=== PATIENT | female | born 1955 | race Caucasian/White ===

== ENCOUNTER → 2016-10-17 | Outpatient (CLI) | payer OTHER ==
[~2016-10-17] MED LIST: ASPI1TAB PO; ATOR1TAB21 PO; COLA100C PO; DULO30CA PO; ENBREL PO; FISH OIL PO; FOLBTAB3 PO; FOLI1TAB2 PO; FOLITAB11 PO; IBUP800T PO; LEVO75TA4 PO; LEVOTHYROXINE PO; METH2.5TA PO; METHOTREXATE PO; NEXI40CA PO; OREN1INJ SC; PEG1POW PO; PERC5TAB8 PO; PERCOCET PO; RAMI5CA PO; RAMIPRIL PO; SIMVASTIN PO
--- NOTE | 2016-10-17 15:01 | DEXA ---
AP SPINE L1 - L4 1.283 0.9 1.3 LT FEMUR TOTAL 0.806 -1.6 -1.2 RT FEMUR TOTAL 0.794 -1.7 -1.3 TOTAL BODY TOTAL OTHER DUAL FEMUR FRAX* ASSESSMENT Risk factors: Rheumatoid arthritis, premature menopause. 10 year probability of fracture Major osteoporotic fracture 13.3 % Hip fracture 2.1 % COMMENTS: Normal bone densitometry of the spine. There is low bone density of the hips. The density of the spine has decreased 10.8% since the initial exam on 2001. The spine density has decreased 2.1% since the most recent exam on 09/29/2011. The density of the left hip has decreased 11.9% since the initial exam on 2001 The density of the left hip has decreased 6.7% since the most recent exam on 07/2012. The density of the right hip has decreased 11.3% since the initial exam on 10/05. The density of the right hip has decreased 6.0% since the most recent exam on . FOLLOW-UP: Recommendation for the next bone density exam: 2 years. AASHISH
== END ==
LOC: M WHC 09:25
PROVIDERS: ATTEND Physician Assistant
DX: M06.9 Rheumatoid arthritis, unspecified (principal)

== ENCOUNTER → 2019-04-21 | Outpatient (CLI) | payer MEDICARE, OTHER ==
[~2019-04-21] MED LIST changes: -ASPI1TAB PO; +ASPI81TA26 PO; -COLA100C PO; +COLA100C5 PO; -DULO30CA PO; +DULO30CA9 PO; +FOLI1TAB11 PO; -FOLI1TAB2 PO; +METH2.5T48 PO; -METH2.5TA PO; +RAMI1CAP24 PO; -RAMI5CA PO
[2019-04-21 15:47] LABS: BASO # 0.1 10^3/uL (0.0-0.2); BASO % 0.5 % (0.0-1.0); EOS # 0.1 10^3/uL (0.0-0.5); EOS % 1.5 % (0.0-3.0); HEMATOCRIT 40.7 % (36.0-47.0); HEMOGLOBIN 13.3 g/dl (12.0-15.5); LYMPH # 2.5 10^3/uL (1.5-5.0); LYMPH % 26.8 % (24.0-44.0); MEAN CORPUSCULAR HEMOGLOBIN 30.6 pg (27.0-33.0); MEAN CORPUSCULAR HGB CONC 32.7 g/dl (32.0-36.5); MEAN CORPUSCULAR VOLUME 93.6 fl (80.0-96.0); MONO # 0.7 10^3/uL (0.0-0.8); MONO % 7.2 % (0.0-5.0); NEUTROPHILS % 63.7 % (36.0-66.0); PLATELET COUNT, AUTOMATED 208 10^3/uL (150-450); RED BLOOD COUNT 4.35 10^6/uL (4.00-5.40); WHITE BLOOD COUNT 9.4 10^3/uL (4.0-10.0)
[2019-04-21 16:06] LABS: ERYTHROCYTE SEDIMENTATION RATE 10 mm/hr (0-30)
[2019-04-21 16:15] LABS: ALBUMIN 3.6 GM/DL (3.2-5.2); ALT/SGPT 30 U/L (12-78); BILIRUBIN,TOTAL 0.4 MG/DL (0.2-1.0); BLOOD UREA NITROGEN 16 MG/DL (7-18); C REACTIVE PROTEIN QUANTITATIV < 0.30 MG/DL (0.00-0.30); CALCIUM LEVEL 8.8 MG/DL (8.8-10.2); CARBON DIOXIDE LEVEL 29 MEQ/L (21-32); CHLORIDE LEVEL 107 MEQ/L (98-107); CREATININE FOR GFR 0.86 MG/DL (0.55-1.30); GLOMERULAR FILTRATION RATE > 60.0 (>45); GLUCOSE, FASTING 104 MG/DL (70-100); POTASSIUM SERUM 4.6 MEQ/L (3.5-5.1); SODIUM LEVEL 140 MEQ/L (136-145); TOTAL PROTEIN 7.1 GM/DL (6.4-8.2)
[2019-04-23 12:22] LABS: HEPATITIS B SURFACE ANTIBODY NEGATIVE (POSITIVE)
[2019-04-23 12:33] LABS: HEPATITIS B SURFACE ANTIGEN NEGATIVE (NEGATIVE)
== END ==
LOC: M LAB 14:19
PROVIDERS: ATTEND Internal Medicine Rheumatology
DX: M05.79 Rheumatoid arthritis with rheumatoid factor of multiple sites without organ or systems involvement (principal); Z79.899 Other long term (current) drug therapy

== ENCOUNTER 2019-08-13 12:58 | Emergency (ER) | payer MEDICARE, OTHER ==
[~2019-08-13] VITALS: Ht 170.2 cm; Wt 93.2 kg
[2019-08-13] MEDS ORDERED: DILT180C28 PO (13:35)
[2019-08-13] MEDS ORDERED: LOSA25TA14 PO (13:35)
[2019-08-13] MEDS ORDERED: XELJ5TAB PO (13:35)
[2019-08-13] MEDS ORDERED: ELIQ5TAB PO (13:35)
[2019-08-13 13:36] LABS: BASO # 0.1 10^3/uL (0.0-0.2); BASO % 0.6 % (0.0-1.0); EOS # 0.1 10^3/uL (0.0-0.5); EOS % 1.1 % (0.0-3.0); HEMATOCRIT 39.5 % (36.0-47.0); HEMOGLOBIN 12.3 g/dl (12.0-15.5); LYMPH # 1.8 10^3/uL (1.5-5.0); LYMPH % 21.4 % (24.0-44.0); MEAN CORPUSCULAR HEMOGLOBIN 29.3 pg (27.0-33.0); MEAN CORPUSCULAR HGB CONC 31.1 g/dl (32.0-36.5); MONO # 0.7 10^3/uL (0.0-0.8); MONO % 7.9 % (0.0-5.0); NEUTROPHILS # 5.8 10^3/uL (1.5-8.5); NEUTROPHILS % 68.6 % (36.0-66.0); PLATELET COUNT, AUTOMATED 227 10^3/uL (150-450); WHITE BLOOD COUNT 8.5 10^3/uL (4.0-10.0)
[2019-08-13] MEDS ORDERED: NS 1,000 ML IV SCH (13:42)
[2019-08-13] MEDS ORDERED: ASPIRIN 81 MG CHEW TABLET PO ONE (13:45)
--- NOTE | 2019-08-13 13:50 | REP ---
Clinical: Chest pain . Comparison: 01/08/2016 . Findings: The mediastinum and cardiac silhouette are stable and within normal limits for portable technique. The lung tinajero are clear without acute consolidation, effusion, or pneumothorax. Skeletal structures are intact. Impression: No acute cardiopulmonary process appreciated. Electronically Signed by Jayme Flores MD 08/13/2019 01:40 P
[2019-08-13 13:55] LABS: INR 1.04; PROTHROMBIN TIME 13.3 SECONDS (11.8-14.0)
[2019-08-13] MEDS: NITROGLYCERIN 0.4 MG SUBL TABLET SL PRN ×2 (13:58→14:04)
[2019-08-13 14:02] LABS: ALBUMIN 3.4 GM/DL (3.2-5.2); ALT/SGPT 24 U/L (12-78); BILIRUBIN,DIRECT 0.1 MG/DL (0.0-0.2); BILIRUBIN,TOTAL 0.6 MG/DL (0.2-1.0); BLOOD UREA NITROGEN 18 MG/DL (7-18); CALCIUM LEVEL 9.1 MG/DL (8.8-10.2); CARBON DIOXIDE LEVEL 27 MEQ/L (21-32); CHLORIDE LEVEL 110 MEQ/L (98-107); CK-MB VALUE MASS 1.4 NG/ML (<3.6); CPK CREATINE PHOSPHOKINASE 106 U/L (26-192); CREATININE FOR GFR 0.89 MG/DL (0.55-1.30); GLOMERULAR FILTRATION RATE > 60.0 (>45); GLUCOSE, FASTING 91 MG/DL (70-100); LIPASE 191 U/L (73-393); MB/CK RELATIVE INDEX 1.32 (< OR =4); POTASSIUM SERUM 4.4 MEQ/L (3.5-5.1); SODIUM LEVEL 142 MEQ/L (136-145); TOTAL PROTEIN 6.8 GM/DL (6.4-8.2); TROPONIN I < 0.02 NG/ML (< 0.10)
[2019-08-13 14:04] VITALS: BP 152/88
[2019-08-13 18:15] LABS: CK-MB VALUE MASS 1.5 NG/ML (<3.6); CPK CREATINE PHOSPHOKINASE 85 U/L (26-192); MB/CK RELATIVE INDEX 1.76 (< OR =4); TROPONIN I < 0.02 NG/ML (< 0.10)
[2019-08-13 18:45] VITALS: BP 177/85
--- NOTE | 2019-08-15 15:05 | ECGEPIP ---
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
--- NOTE | 2019-08-15 15:11 | ECGEPIP ---
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
== END 2019-08-13 18:51 | disposition home or self-care (01) ==
LOC: M ED 12:58
DX: R07.89 Other chest pain (principal); R06.02 Shortness of breath; I10 Essential (primary) hypertension; I48.91 Unspecified atrial fibrillation; E07.9 Disorder of thyroid, unspecified; I25.2 Old myocardial infarction; Z79.899 Other long term (current) drug therapy; Z79.890 Hormone replacement therapy; Z79.01 Long term (current) use of anticoagulants

== ENCOUNTER → 2019-11-08 | Outpatient (REF) | payer MEDICARE, OTHER ==
[~2019-11-08] MED LIST changes: +AUGM875T28 PO; +DILT180C28 PO; +ELIQ5TAB PO; +LOSA25TA14 PO; +PROM25TA12 PO; +XELJ5TAB PO
[2019-11-08 13:51] LABS: BASO % 0.4 % (0.0-1.0); EOS # 0.1 10^3/uL (0.0-0.5); EOS % 0.8 % (0.0-3.0); HEMOGLOBIN 13.2 g/dl (12.0-15.5); LYMPH # 1.6 10^3/uL (1.5-5.0); LYMPH % 19.8 % (24.0-44.0); MEAN CORPUSCULAR HEMOGLOBIN 29.2 pg (27.0-33.0); MEAN CORPUSCULAR HGB CONC 31.4 g/dl (32.0-36.5); MEAN CORPUSCULAR VOLUME 92.9 fl (80.0-96.0); MONO # 0.6 10^3/uL (0.0-0.8); MONO % 7.7 % (0.0-5.0); NEUTROPHILS # 5.6 10^3/uL (1.5-8.5); PLATELET COUNT, AUTOMATED 225 10^3/uL (150-450); RED BLOOD COUNT 4.52 10^6/uL (4.00-5.40); WHITE BLOOD COUNT 7.8 10^3/uL (4.0-10.0)
[2019-11-08 13:58] LABS: ALBUMIN 3.7 GM/DL (3.2-5.2); ALT/SGPT 32 U/L (12-78); BILIRUBIN,TOTAL 0.9 MG/DL (0.2-1.0); BLOOD UREA NITROGEN 16 MG/DL (7-18); C REACTIVE PROTEIN QUANTITATIV < 0.30 MG/DL (0.00-0.30); CALCIUM LEVEL 8.8 MG/DL (8.8-10.2); CARBON DIOXIDE LEVEL 29 MEQ/L (21-32); CHLORIDE LEVEL 109 MEQ/L (98-107); GLOMERULAR FILTRATION RATE > 60.0 (>45); GLUCOSE, FASTING 116 MG/DL (70-100); SODIUM LEVEL 142 MEQ/L (136-145); TOTAL PROTEIN 7.1 GM/DL (6.4-8.2)
[2019-11-08 14:17] LABS: ERYTHROCYTE SEDIMENTATION RATE 9 mm/hr (0-30)
== END ==
LOC: M SFHCRHEU 08:21
PROVIDERS: ATTEND Internal Medicine
DX: M05.79 Rheumatoid arthritis with rheumatoid factor of multiple sites without organ or systems involvement (principal)
CPT/HCPCS: 36415; 80053; 85025; 85652; 86140; G0463

== ENCOUNTER 2019-11-09 07:14 | Emergency (ER) | payer MEDICARE, OTHER ==
[~2019-11-09] VITALS: Ht 170.2 cm; Wt 93.3 kg
[~2019-11-09 07:14] MED LIST changes: -AUGM875T28 PO; -PROM25TA12 PO
[2019-11-09] MEDS ORDERED: NS 1,000 ML IV ONE (07:45)
[2019-11-09] MEDS ORDERED: ONDANSETRON 4MG/2ML VIAL (J2405) IV ONE (07:45)
[2019-11-09] MEDS ORDERED: GI COCKTAIL 50ML BTL(HYOSCYAMINE/MAALOX/LIDOCAINE VISCOUS)(1:3:1) PO ONE (07:45)
[2019-11-09 08:47] LABS: BASO % 0.5 % (0.0-1.0); EOS # 0.1 10^3/uL (0.0-0.5); EOS % 0.9 % (0.0-3.0); HEMOGLOBIN 12.7 g/dl (12.0-15.5); LYMPH # 1.6 10^3/uL (1.5-5.0); LYMPH % 19.3 % (24.0-44.0); MEAN CORPUSCULAR HEMOGLOBIN 29.1 pg (27.0-33.0); MEAN CORPUSCULAR HGB CONC 31.8 g/dl (32.0-36.5); MEAN CORPUSCULAR VOLUME 91.5 fl (80.0-96.0); MONO # 0.5 10^3/uL (0.0-0.8); MONO % 5.6 % (0.0-5.0); NEUTROPHILS % 73.3 % (36.0-66.0); PLATELET COUNT, AUTOMATED 204 10^3/uL (150-450); RED BLOOD COUNT 4.37 10^6/uL (4.00-5.40); WHITE BLOOD COUNT 8.2 10^3/uL (4.0-10.0)
[2019-11-09 09:05] LABS: INFLUENZA A AMPLIFICATION NEGATIVE (NEGATIVE); INFLUENZA B AMPLIFICATION NEGATIVE (NEGATIVE)
[2019-11-09 09:11] LABS: ALBUMIN 3.4 GM/DL (3.2-5.2); ALT/SGPT 30 U/L (12-78); BILIRUBIN,DIRECT 0.2 MG/DL (0.0-0.2); BILIRUBIN,TOTAL 0.8 MG/DL (0.2-1.0); CK-MB VALUE MASS < 1.0 NG/ML (<3.6); CPK CREATINE PHOSPHOKINASE 88 U/L (26-192); LIPASE 118 U/L (73-393); MB/CK RELATIVE INDEX 1.14 (< OR =4); TOTAL PROTEIN 6.6 GM/DL (6.4-8.2); TROPONIN I < 0.02 NG/ML (< 0.10)
[2019-11-09] MEDS ORDERED: ISOVUE-370 76% 100ML VIAL (Q9967) As Ordered ONE (09:25)
[2019-11-09 09:33] LABS: INR 1.21
[2019-11-09 09:34] LABS: PARTIAL THROMBOPLASTIN TIME 31.7 SECONDS (25.0-38.4)
[2019-11-09] MEDS ORDERED: PROMETHAZINE INJ 25 MG/ML VIAL (J2550) IV ONE (10:00)
--- NOTE | 2019-11-09 10:02 | REP ---
Clinical: Abdominal pain with nausea and vomiting. Technique: Axial contrast enhanced images from the lung bases to the pubic symphysis using 100 ml Isovue 370 intravenous contrast material with coronal and sagittal re-formations. Findings: Lung bases are relatively clear. Visualized portions of the heart and pericardium are normal. Diffuse fatty infiltration to the liver noted. Evidence of prior cholecystectomy. Spleen, pancreas, bilateral adrenal glands and kidneys are essentially normal / age appropriate. The enteric system is without obstruction and the small bowel is relatively normal in appearance. A very subtle ascending colitis cannot definitively be excluded. Few scattered sigmoid diverticula noted without acute diverticulitis. Pelvis demonstrates normal bladder and evidence for prior hysterectomy. No ascites. No free air. No adenopathy. Abdominal aorta without aneurysm or dissection. Musculoskeletal structures demonstrate degenerative changes. Impression: 1. Hepatic steatosis. 2. A very mild ascending colitis cannot be excluded. 3. Few scattered sigmoid diverticula without acute diverticulitis. 4. No ascites, focal inflammatory stranding, adenopathy, or free air noted. Electronically Signed by Jayme Flores MD 11/09/2019 09:53 A
[2019-11-09] MEDS ORDERED: AUGM875T28 PO (11:07)
[2019-11-09] MEDS ORDERED: PROM25TA12 PO (11:07)
[2019-11-09 11:16] VITALS: BP 150/84
--- NOTE | 2019-11-10 05:28 | ECGEPIP ---
[facility] - ED Test Date: 2019-11-09 Pat Name: PAULINE LYONS Department: Room: - Gender: Female Regional Cra: : 1955 Requested By: PAULA TAYLOR Order Number: [id number] Reading MD: Thomas Juarez Measurements Intervals [place] Rate: 66 P: 42 LA: 175 QRS: 6 QRSD: 89 T: 62 QT: 389 QTc: 408 Interpretive Statements SINUS RHYTHM INCOMPLETE RIGHT BUNDLE BRANCH BLOCK SIMILAR TO 08/13/19 Electronically Signed on 11-10-2019 5:27:50 EDT by Thomas Juarez
== END 2019-11-09 11:22 | disposition home or self-care (01) ==
LOC: M ED 07:14
DX: K52.9 Noninfective gastroenteritis and colitis, unspecified (principal); I48.91 Unspecified atrial fibrillation; M06.9 Rheumatoid arthritis, unspecified; Z95.5 Presence of coronary angioplasty implant and graft; Z79.899 Other long term (current) drug therapy; Z79.01 Long term (current) use of anticoagulants
CPT/HCPCS: 74177; 80047; 80076; 81001; 82550; 82553; 83690; 84484; 85025; 85610; 85730; 87502; 93005; 96361; 96374; 96375; 99284; J2405; Q9967

== ENCOUNTER → 2019-11-10 | Outpatient (REF) | payer MEDICARE, OTHER ==
[~2019-11-10] MED LIST changes: +AUGM875T28 PO; +PROM25TA12 PO
== END ==
LOC: M LAB REF 10:56
PROVIDERS: ATTEND Nurse Practitioner Family
DX: R11.2 Nausea with vomiting, unspecified (principal); R19.7 Diarrhea, unspecified

== ENCOUNTER → 2020-10-05 | Outpatient (CLI) | payer MEDICARE, OTHER ==
--- NOTE | 2020-10-05 11:56 | DEXAMM ---
INDICATION: M81.0 AGE RELATED OSTEOPOROSIS. COMPARISON: The most recent comparison study is October 17, 2016. The most remote is dated 05 October 2001.. TECHNIQUE: Bone density was measured using dual-energy x-ray absorptionmetry (DEXA). FINDINGS: AP SPINE L1-L4 BMD 1.342 g/cm2 Young Adult T-Score 1.4 Age Matched Z-Score 3.0. LT FEMUR, TOTAL BMD 0.817 g/cm2 Young Adult T-Score -1.5 Age Matched Z-Score -0.2. LT NECK BMD 0.797 g/cm2 Young Adult T-Score -1.7 Age Matched Z-Score -0.2. RT FEMUR, TOTAL BMD 0.799 g/cm2 Young Adult T-Score -1.7 Age Matched Z-Score -0.4. RT NECK BMD 0.757 g/cm2 Young Adult T-Score -2.0 Age Matched Z-Score -0.5. IMPRESSION: There is normal bone density of the spine. There is low bone density of the left hip. There is low bone density of the right hip. The density of the spine has decreased 6.7% since the initial exam on October 05, 2001. The density of the spine increased 4.6% since most recent exam on October 17, 2016. The density of the left hip has decreased 10.7% since initial exam on October 05, 2001. The density of the left hip has increased 1.4% since most recent exam on October 17, 2016. The density of the right hip has decreased 10.7% since the initial exam on October 05, 2001. The density of the right hip has increased 0.6% since the most recent exam on October 17, 2016. FOLLOW-UP: Recommendation for the next bone density exam: 2 years. <Electronically signed by Mingo Borrero > 10/05/20 [id number]
== END ==
LOC: M WHC 11:15
PROVIDERS: ATTEND Internal Medicine Endocrinology, Diabetes & Metabolism
DX: M81.0 Age-related osteoporosis without current pathological fracture (principal); M85.851 Other specified disorders of bone density and structure, right thigh; M85.852 Other specified disorders of bone density and structure, left thigh

== ENCOUNTER → 2023-03-13 | Outpatient (REF) | payer MEDICARE, OTHER ==
[~2023-03-13] MED LIST changes: +LOSA25TA13 PO; -LOSA25TA14 PO; -PEG1POW PO; +POLY17PO18 PO
== END ==
LOC: M SFHCRHEU 10:37
PROVIDERS: ATTEND Internal Medicine Rheumatology
DX: M05.79 Rheumatoid arthritis with rheumatoid factor of multiple sites without organ or systems involvement (principal); M89.49 Other hypertrophic osteoarthropathy, multiple sites; H04.123 Dry eye syndrome of bilateral lacrimal glands; Z79.899 Other long term (current) drug therapy

== ENCOUNTER → 2023-05-22 | Outpatient (REF) | payer MEDICARE, OTHER | LOC: M SFHCRHEU 11:56 | PROVIDERS: ATTEND Internal Medicine Rheumatology | DX: M05.79 Rheumatoid arthritis with rheumatoid factor of multiple sites without organ or systems involvement (principal); Z79.899 Other long term (current) drug therapy; M89.49 Other hypertrophic osteoarthropathy, multiple sites; H04.123 Dry eye syndrome of bilateral lacrimal glands ==

== ENCOUNTER → 2023-08-05 | Outpatient (REF) | payer MEDICARE, OTHER | LOC: M SFHCRHEU 09:10 | PROVIDERS: ATTEND Internal Medicine Rheumatology | DX: M05.79 Rheumatoid arthritis with rheumatoid factor of multiple sites without organ or systems involvement (principal); Z79.899 Other long term (current) drug therapy; M89.49 Other hypertrophic osteoarthropathy, multiple sites; H04.123 Dry eye syndrome of bilateral lacrimal glands ==

== ENCOUNTER → 2024-01-28 | Outpatient (CLI) | payer MEDICARE, OTHER ==
[~2024-01-28] MED LIST changes: -RAMI1CAP24 PO; +RAMI5CAP60 PO
== END ==
LOC: M PLAIMG 07:20
PROVIDERS: ATTEND Physician Assistant
DX: I48.0 Paroxysmal atrial fibrillation (principal)

== ENCOUNTER → 2024-02-10 | Outpatient (CLI) | payer MEDICARE, OTHER | LOC: M SLEEP HO 10:52 | PROVIDERS: ATTEND Physician Assistant | DX: G47.9 Sleep disorder, unspecified (principal) ==

== ENCOUNTER → 2024-05-19 | Outpatient (CLI) | payer MEDICARE, OTHER | LOC: M SLEEP 20:00 | PROVIDERS: ATTEND Physician Assistant | DX: G47.33 Obstructive sleep apnea (adult) (pediatric) (principal) ==

== ENCOUNTER → 2024-07-08 | Outpatient (CLI) | payer OTHER | LOC: M SLEEP 20:00 | PROVIDERS: ATTEND Physician Assistant | DX: G47.33 Obstructive sleep apnea (adult) (pediatric) (principal) ==

== ENCOUNTER → 2025-06-08 | Outpatient (REF) | payer OTHER | LOC: M SFHCRHEU 09:52 | PROVIDERS: ATTEND Internal Medicine Rheumatology | DX: Z53.9 Procedure and treatment not carried out, unspecified reason (principal) ==

== ENCOUNTER 2025-07-29 13:54 | Inpatient (IN) | payer OTHER ==
[~2025-07-29] VITALS: Ht 170.2 cm; Wt 92.2 kg
[2025-07-29 14:49] LABS: BASO # 0.0 10^3/uL (0.0-0.2); BASO % 0.3 % (0.0-1.0); EOS # 0.1 10^3/uL (0.0-0.5); EOS % 0.7 % (0.0-3.0); LYMPH # 1.2 10^3/uL (1.5-5.0); LYMPH % 12.6 % (24.0-44.0); MONO # 0.8 10^3/uL (0.0-0.8); MONO % 8.4 % (2.0-8.0); NEUTROPHILS # 7.1 10^3/uL (1.5-8.5); NEUTROPHILS % 77.6 % (36.0-66.0); PLATELET COUNT, AUTOMATED 268 10^3/uL (150-450)
[2025-07-29 15:09] LABS: CK-MB VALUE MASS 5.7 NG/ML (<3.6); CPK CREATINE PHOSPHOKINASE 302 U/L (34-145); MB/CK RELATIVE INDEX 1.88 (< OR =4)
[2025-07-29 15:32] LABS: ALT/SGPT 30 U/L (7.0-40); AST/SGOT 29 U/L (<34); CALCIUM LEVEL 9.1 MG/DL (8.3-10.6); CARBON DIOXIDE LEVEL 27 MMOL/L (20-31); CHLORIDE LEVEL 101 MMOL/L (98-107); CREATININE FOR GFR 1.06 MG/DL (0.55-1.30); GLOMERULAR FILTRATION RATE 56.2 (>39); POTASSIUM SERUM 2.7 MMOL/L (3.5-5.1); SODIUM LEVEL 139 MMOL/L (136-145)
[2025-07-29] MEDS ORDERED: ISOVUE-370 76% 100 ML VIAL As Ordered ONE (15:54)
[2025-07-29 15:59] LABS: CK-MB VALUE MASS 5.3 NG/ML (<3.6)
[2025-07-29 16:02] LABS: CPK CREATINE PHOSPHOKINASE 308 U/L (34-145); MB/CK RELATIVE INDEX 1.72 (< OR =4)
[2025-07-29 16:32] LABS: MAGNESIUM LEVEL 1.5 MG/DL (1.8-2.4)
[2025-07-29] MEDS: NS 500 ML IV ONE (16:41)
[2025-07-29] MEDS: KCL 10MEQ/100ML SWI (KRUN) 10 MEQ in IV 1 EA IV ONE (16:41)
[2025-07-29] MEDS ORDERED: LOSA50TA28 PO (17:21)
[2025-07-29] MEDS ORDERED: DULO30CA9 PO (17:21)
[2025-07-29] MEDS ORDERED: CHLO125TA PO (17:21)
[2025-07-29] MEDS ORDERED: JARD1TAB PO (17:21)
[2025-07-29] MEDS ORDERED: OMEP1CAP73 PO (17:23)
[2025-07-29] MEDS ORDERED: LIDO1ADH93 TD (17:23)
[2025-07-29] MEDS ORDERED: METF500T13 PO (17:23)
[2025-07-29] MEDS ORDERED: DICL100G10 TOP (17:23)
[2025-07-29] MEDS ORDERED: HOME MED LIST COMPLETE! XX SCH (17:25)
[2025-07-29 17:27] LABS: CK-MB VALUE MASS 4.3 NG/ML (<3.6)
[2025-07-29 17:29] LABS: CPK CREATINE PHOSPHOKINASE 283 U/L (34-145); MB/CK RELATIVE INDEX 1.51 (< OR =4)
[2025-07-29] MEDS: MAG SULF 1GM/100ML (MAG RUN) 1 GM in IV 1 EA IV ONE (17:51)
[2025-07-29 17:52] VITALS: BP 188/100
[2025-07-29] MEDS: LOSARTAN 50 MG TABLET PO ONE (17:52)
[2025-07-29] MEDS: POTASSIUM CHLORIDE 10MEQ SR TABLET PO ONE (17:53)
[2025-07-29] MEDS ORDERED: MAALOX 30 ML SUSP *UDC PO PRN (21:30)
[2025-07-29] MEDS ORDERED: MOM 30 ML SUSPENSION UDC PO PRN (21:30)
[2025-07-29] MEDS ORDERED: ACETAMINOPHEN 325 MG TAB PO PRN (21:30)
[2025-07-29] MEDS ORDERED: PILL CUTTER 1 EACH XX PRN (21:45)
[2025-07-29] MEDS: ATORVASTATIN 20 MG TAB PO SCH (21:47)
[2025-07-29] MEDS: APIXABAN 5 MG TAB PO SCH (21:47)
[2025-07-29 22:24] LABS: CALCIUM LEVEL 8.4 MG/DL (8.3-10.6); CARBON DIOXIDE LEVEL 26.0 MMOL/L (20-31); CHLORIDE LEVEL 103.0 MMOL/L (98-107); CREATININE FOR GFR 0.86 MG/DL (0.55-1.30); GLOMERULAR FILTRATION RATE 72.2 (>39); MAGNESIUM LEVEL 1.8 MG/DL (1.8-2.4); PHOSPHORUS LEVEL 3.8 MG/DL (2.4-5.1); POTASSIUM SERUM 3.1 MMOL/L (3.5-5.1); SODIUM LEVEL 139.0 MMOL/L (136-145)
[2025-07-29 22:39] VITALS: BP 149/83; TEMP 97.3; O2SAT 99
[2025-07-29 23:14] VITALS: BP 131/65; O2SAT 98
[2025-07-29 23:15] VITALS: O2SAT 97
[2025-07-30] VITALS (15 sets, daily range): BP systolic 129–147; BP diastolic 64–75; TEMP 97.2–97.5; O2SAT 93–97
[2025-07-30] MEDS: POTASSIUM CHLORIDE 10% LIQ 20MEQ/15ML UDC PO ONE (04:05)
[2025-07-30 05:38] LABS: PLATELET COUNT, AUTOMATED 230 10^3/uL (150-450)
[2025-07-30 06:09] LABS: ALT/SGPT 26.0 U/L (7.0-40); AST/SGOT 26.0 U/L (<34); CALCIUM LEVEL 8.6 MG/DL (8.3-10.6); CARBON DIOXIDE LEVEL 28.0 MMOL/L (20-31); CHLORIDE LEVEL 102.0 MMOL/L (98-107); CREATININE FOR GFR 0.93 MG/DL (0.55-1.30); GLOMERULAR FILTRATION RATE 65.7 (>39); POTASSIUM SERUM 3.3 MMOL/L (3.5-5.1); SODIUM LEVEL 139.0 MMOL/L (136-145)
[2025-07-30] MEDS: LEVOTHYROXINE 75 MCG TABLET (0.075 MG) PO SCH (06:33)
[2025-07-30] MEDS ORDERED: LIDOCAINE 5% PATCH TD PRN (07:20)
[2025-07-30] MEDS: MAG SULF 1GM/100ML (MAG RUN) 1 GM in IV 1 EA IV ONE (08:13)
[2025-07-30] MEDS: POTASSIUM CHLORIDE 10MEQ SR TABLET PO ONE (08:13)
[2025-07-30] MEDS: FOLIC ACID 1 MG TAB PO SCH (08:14)
[2025-07-30] MEDS: DOCUSATE SODIUM 100 MG CAPSULE PO SCH (08:15)
[2025-07-30] MEDS: PANTOPRAZOLE 40MG VIAL IV SCH (08:15)
[2025-07-30] MEDS: DAPAGLIFLOZIN PROPANEDIOL 10 MG TABLET PO SCH (08:15)
[2025-07-30] MEDS ORDERED: GLUCOSE 4 GM CHEW PO PRN (08:35)
[2025-07-30] MEDS ORDERED: GLUCAGON INJ 1 MG VIAL SC PRN (08:35)
[2025-07-30] MEDS ORDERED: DEXTROSE 50% 50 ML SYRINGE IV PRN (08:35)
[2025-07-30] MEDS: INSULIN LISPRO (NovoLOG) PER UNIT SC SCH (13:47)
[2025-07-30] MEDS ORDERED: OMEP40CA4 PO (15:02)
[2025-07-30] MEDS ORDERED: LOSARTAN 50 MG TABLET PO SCH (21:00)
[2025-07-30] MEDS ORDERED: INSULIN LISPRO (NovoLOG) PER UNIT SC SCH (21:00)
== END 2025-07-30 16:12 | disposition home or self-care (01) | DRG 313 ==
LOC: EDBD 13:54 → M ED 13:54 → M ED INP 21:43 → M PCU 22:33
PROVIDERS: ADMIT Student in an Organized Health Care Education/Training Program; ATTEND Internal Medicine
PROC: B246ZZZ Ultrasonography of Right and Left Heart (ICD-10-PCS; principal; 2025-07-30)
DX: R07.89 Other chest pain (principal); E87.6 Hypokalemia; E83.42 Hypomagnesemia; K76.0 Fatty (change of) liver, not elsewhere classified; I10 Essential (primary) hypertension; R10.13 Epigastric pain; E78.5 Hyperlipidemia, unspecified; I48.0 Paroxysmal atrial fibrillation; I25.10 Atherosclerotic heart disease of native coronary artery without angina pectoris; F39 Unspecified mood [affective] disorder; M06.9 Rheumatoid arthritis, unspecified; E03.9 Hypothyroidism, unspecified; E11.9 Type 2 diabetes mellitus without complications; M54.9 Dorsalgia, unspecified; Z95.5 Presence of coronary angioplasty implant and graft; Z90.49 Acquired absence of other specified parts of digestive tract; Z79.01 Long term (current) use of anticoagulants; Z79.890 Hormone replacement therapy; Z79.899 Other long term (current) drug therapy